=== PATIENT | male | born 1950 | race Caucasian/White ===

== ENCOUNTER → 2017-12-18 | Outpatient (CLI) | payer OTHER | LOC: ULTRA 11:21 | DX: M71.21 Synovial cyst of popliteal space [Baker], right knee (principal); M79.89 Other specified soft tissue disorders ==

== ENCOUNTER 2021-02-25 16:36 | Emergency (ER) | payer OTHER ==
[~2021-02-25] VITALS: Ht 172.7 cm; Wt 79.8 kg
--- NOTE | ~2021-02-25 | HC ---
[facility] [place] [address] CONSULTATION Name: KENNETH MAYEN Room #: DEP [facility]#: [id number] Admission: 02/25/21 Attend Phys: Discharge: 02/25/21 Date of : 50 Report #: [id number] THIS REPORT FOR: cc: Jeremiah Liu MD, Steven A. MD Park,Jame Cantrell MD ~ DATE OF SERVICE: 02/25/2021 CHIEF COMPLAINT: Straddle injury, blood at meatus. HISTORY OF PRESENT ILLNESS: This is a 70-year-old gentleman who was in his attic and he fell landing on the lemus in the straddle position. Afterwards, he has had pain and then had some blood at the meatus as well as blood in the urine. He has voided, but the hematuria did not resolve and so he came to the emergency room. ALLERGIES: None. PAST MEDICAL HISTORY: Diabetes. REVIEW OF SYSTEMS: Reviewed in the chart. PHYSICAL EXAMINATION: VITAL SIGNS: Temperature 36.4, BP 168/89, heart rate of 99. GENERAL: In no apparent distress. HEENT: Normocephalic, atraumatic. NECK: Supple. CHEST: Unlabored breathing. CARDIOVASCULAR: Regular rate. ABDOMEN: Soft. GENITOURINARY: Shows uncircumcised male, some ecchymosis at his penoscrotal junction, no significant tenderness. Testicles are unremarkable. EXTREMITIES: No cyanosis. ASSESSMENT: Blood at meatus, straddle injury, probable urethral injury. PLAN: Discussed with the emergency room about doing a retrograde urethrogram -- but they had trouble with Radiology to order this, therefore, it was felt best to do a bedside cystoscopy for diagnosis as well as possible catheter placement. After verbal informed consent was obtained from the patient and the at bedside, the area of the genitalia was prepped and draped in standard fashion. A video scope was used. Normal anterior urethra up until the junction around the bulbar penile urethral area. There was an obvious tear of the mucosa. This was circumferential and was bypassed easily with the scope going through the retrobulbar urethra, membranous urethra, prostate into the bladder. Bladder was [facility] [address] [place] [address] CONSULTATION Name: HER TIARRAVON Mancia Room #: DEP [facility]#: [id number] Admission: 02/25/21 Attend Phys: Discharge: 02/25/21 Date of : 50 Report #: [id number] distended. A wire was placed through the scope into the bladder. The scope was withdrawn and over the wire, an 18-M[place] Councill catheter was inserted without difficulty. A 10 mL inflated in balloon. The catheter was drained and over 700 mL came out. The patient tolerated the procedure well. We will send home with the Stewart to be drained for at least 2 weeks, next is antibiotics for a week. FOLLOWUP: We will have him visit with one of our reconstruction specialists to ensure that he is properly healed and consider doing some type of imaging prior to or at the time of catheter removal. By: [id number] Jame Nelson MD /nt
[2021-02-25 16:39] VITALS: BP 168/89
[2021-02-25 18:04] LABS: URINE BLOOD 2+ (Negative); URINE CLARITY SL CLOUDY; URINE COLOR RED; URINE GLUCOSE-RANDOM* NEGATIVE (Negative); URINE KETONES NEGATIVE (Negative); URINE LEUKOCYTES-REFLEX TRACE (Negative); URINE PROTEIN (DIPSTICK) 1+ (Negative); URINE UROBILINOGEN 0.2 E.U./dl (0.2-1.0)
[2021-02-25 18:06] LABS: ICTOTEST (BILI CONFIRMATORY) Negative (Negative); URINE BILIRUBIN NEGATIVE (Negative); URINE NITRITE-REFLEX POSITIVE (Negative)
[2021-02-25 18:09] LABS: CASTS None Seen /LPF (None Seen); SQUAMOUS None Seen /LPF (0-3)
[2021-02-25 18:10] LABS: BACTERIA-REFLEX None Seen /HPF (None Seen); CRYSTALS None Seen /LPF (None Seen); URINE RBC >20 Many /HPF (NONE SEEN); URINE WBC-REFLEX None Seen /HPF (0-5)
[2021-02-25] MEDS ORDERED: BACTRIM DS TAB1 EAC1 PO (18:47)
== END 2021-02-25 19:31 | disposition home or self-care (01) ==
LOC: ER 16:36
PROVIDERS: Nurse Practitioner Family
DX: S37.39XA Other injury of urethra, initial encounter (principal); E11.9 Type 2 diabetes mellitus without complications; W17.89XA Other fall from one level to another, initial encounter; Y93.89 Activity, other specified; Y92.89 Other specified places as the place of occurrence of the external cause; Y99.8 Other external cause status

== ENCOUNTER 2021-03-18 12:41 | Emergency (ER) | payer OTHER ==
[~2021-03-18] VITALS: Ht 172.7 cm; Wt 77.1 kg
[~2021-03-18 12:41] MED LIST: BACTRIM DS TAB1 EAC1 PO
[2021-03-18 15:11] LABS: URINE BILIRUBIN NEGATIVE (Negative); URINE BLOOD 3+ (Negative); URINE CLARITY CLOUDY; URINE COLOR YELLOW; URINE GLUCOSE-RANDOM* NEGATIVE (Negative); URINE KETONES NEGATIVE (Negative); URINE PROTEIN (DIPSTICK) NEGATIVE (Negative); URINE SPECIFIC GRAVITY 1.015 (1.005-1.035); URINE UROBILINOGEN 0.2 E.U./dl (0.2-1.0)
[2021-03-18 15:16] LABS: URINE LEUKOCYTES-REFLEX 2+ (Negative); URINE NITRITE-REFLEX POSITIVE (Negative)
[2021-03-18 15:29] LABS: SQUAMOUS 0-3 Few /LPF (0-3); URINE RBC >20 Many /HPF (NONE SEEN); URINE WBC-REFLEX 6-15 Few /HPF (0-5)
[2021-03-18] MEDS ORDERED: CEPHALEXIN500 MG PO (15:36)
[2021-03-18 15:47] VITALS: BP 128/78
== END 2021-03-18 15:47 | disposition home or self-care (01) ==
LOC: ER 12:41
PROVIDERS: Nurse Practitioner Family
DX: T83.9XXA Unspecified complication of genitourinary prosthetic device, implant and graft, initial encounter (principal); N39.0 Urinary tract infection, site not specified; E11.9 Type 2 diabetes mellitus without complications; X58.XXXA Exposure to other specified factors, initial encounter; Y93.89 Activity, other specified; Y92.89 Other specified places as the place of occurrence of the external cause; Y99.8 Other external cause status

== ENCOUNTER 2021-03-18 20:05 | Emergency (ER) | payer OTHER ==
[~2021-03-18] VITALS: Ht 172.7 cm; Wt 77.1 kg
[~2021-03-18 20:05] MED LIST changes: +CEPHALEXIN500 MG PO
[2021-03-18 21:32] VITALS: BP 136/78
== END 2021-03-18 21:48 | disposition home or self-care (01) ==
LOC: ER 20:05
DX: T83.011D Breakdown (mechanical) of indwelling urethral catheter, subsequent encounter (principal); E11.9 Type 2 diabetes mellitus without complications